=== PATIENT | female | born 1965 | race Caucasian/White ===

== ENCOUNTER 2025-03-02 09:32 | Emergency (ER) | payer OTHER, SELFPAY ==
--- NOTE | 2025-03-02 09:35 | ED_ITS ---
HPI - Nausea/Vomiting/Diarrhea General Chief complaint: Nausea/Vomiting/Diarrhea Stated complaint: Nausea Time Seen by Provider: 03/02/25 09:35 Source: patient Mode of arrival: ambulatory Limitations: no limitations History of Present Illness HPI Narrative: Patient is a 59-year-old female who presents with nausea for 3 days. Patient took her normal Mounjaro injection on Friday and has had nausea since. Patiayse t states that normally last 2 days. He denies any fever, vomiting, diarrhea. Does report mild cramping at times. Has taken Tums and Pepto-Bismol. Patient has PCP appointment on Friday with blood work. Related Data Home Medications ?Medication ?Instructions ?Recorded ?Confirmed ?Last Taken ?Type sertraline 25 mg tablet mg 03/02/25 Unknown History tirzepatide 2.5 mg/0.5 mL 2.5 mg subcut WEEKLY 03/02/25 03/02/25 Unknown History subcutaneous pen injector (Mounjaro) Allergies Allergy/AdvReac Type Severity Reaction Status Date / Time No Known Allergies Allergy Verified 03/02/25 09:41 Review of Systems Review of Systems: All systems reviewed & are unremarkable except as noted in HPI and below Constitutional: Constitutional: Denies body ache(s), Denies chills, Denies fatigue, Denies fever(s), Denies headache(s), Denies malaise and Denies weakness Eyes: Eyes: Denies blurry vision, Denies irritation and Denies loss of vision ENT: Denies otalgia, Denies headache(s), Denies nasal discharge, Denies sinus pain and Denies sore throat Cardiovascular: Cardiovascular: Denies chest pain, Denies irregular heart rhythm and Denies dyspnea Respiratory: Respiratory: Denies dyspnea Gastrointestinal: Gastrointestinal: Denies abdominal pain, Denies melena, Denies hematochezia, Denies diarrhea, Reports nausea and Denies vomiting Musculoskeletal: Musculoskeletal: Denies back pain, Denies myalgias and Denies arthralgias Integumentary/Breasts: Skin/Breast: Denies pruritus and Denies rash Neurologic: Denies headache(s), Denies loss of vision and Denies weakness Psychiatric: Psychiatric: Reports no additional psychiatric complaints Endocrine: Endocrine: Denies fatigue PMFSH Comments At time of signature, agree with nursing past medical, surgical, social and family history. There is no relevant family history pertinent to the presenting complaint. Exam Const: General: cooperative, healthy appearing, comfortable, no acute distress and well nourished Nutritional Appearance: well nourished Orientation/consciousness: patient oriented x3 Limitations: no limitations HENMT: Head: normal to inspection, normocephalic and atraumatic Ears: hearing grossly normal bilaterally and external ears normal Face/Nose/Sinus: Normal external nose present, normal facial exam and face symmetric Face and sinus: normal facial exam and face symmetric Mouth: Yes lip normal Eyes: General: appearance normal, both eyes and all related structures Alignment and Position: alignment normal and position normal Periorbital: periorbital findings normal Eyelids: eyelids normal Pupils: Equal, round and reactive pupils present EOM: EOMs intact bilaterally Neck: Neck: normal visual inspection, full ROM and supple Chest: Chest palpation & inspection: normal inspection of the chest Resp: Effort & Inspection: normal respiratory effort and able to speak in complete sentences Auscultation: clear to auscultation bilaterally Cardio: Rate: regular rate Rhythm: regular rhythm Heart sounds: S1 normal heart sound present and S2 normal heart sound present GI: Inspection: normal to inspection GI Palp: No abdominal tenderness Auscultation: normal bowel sounds Skin: General skin exam: normal color and no rashes or lesions noted Neuro: General: patient oriented x3 and moves all extremities Cranial nerves: Yes Equal, round and reactive pupils present Speech: normal speech Gait exam (Neuro): Normal gait present Extrem: General: normal to inspection, full ROM and no edema Psych: Appearance: grossly normal and well kempt Mental Status: mental status grossly normal Speech and movement: Normal speech and movement present Affect: normal affect Attitude: cooperative Thought process: Normal thought process present Course Course Emergency Course: Patient is aware of diagnosis, understands and agrees to treatment plan. Anticipatory guidance given. Patient agrees to follow-up as directed and is aware of reasons to seek care at the emergency department. Portions of this record may have been created with voice recognition software Level of Care: Express Care Visit Vital Signs Vital signs: Reviewed MDM - Nausea/Vomiting/Diarrhea MDM Narrative Medical decision making narrative: Pt well hydrated appearing, in no respiratory distress, hemodynamically stable. Recommend supportive care. The patient is stable at time of discharge the clinical impression was discussed and the patient was given the opportunity to ask questions, which were addressed as completely as possible given the information available at present. Anticipatory guidance and return to care precautions were discussed and the importance of primary care follow-up was stressed and encouraged. The patient voiced understanding of the plan, indications to return, and the need for follow-up. Exam findings show no acute concerns or changes Patient is appropriate for outpatient treatment and follow-up. Differential Diagnosis Differential diagnosis: Likely gastroenteritis, drug-induced nausea and vomiting and dehydration Medical Records Attestation: I reviewed the patient's medical records. Discharge Plan Discharge Clinical Impression: Nausea Patient Disposition: Home Condition: Stable Instructions: Acute Nausea and Vomiting (ED) Additional Instructions: Stay hydrated. Take small sips of fluid containing electrolytes frequently(Body [place], Gatorade, Powerade, liquid IV). Eat small meals that her very bland including bananas, applesauce, rice, toast, boiled or grilled chicken, soup. Do not eat anything fried, spicy or overly acidic. You should go to the hospital if you experience return of persistent nausea and vomiting that does not resolve and does not allow you to tolerate any food or fluids, persistent fevers for greater than 2-3 more days, increasing abdominal pain that persists despite medications, persistent diarrhea, dizziness, syncope (fainting), or for any other concerns. Patient Language: Jordanian Prescriptions: New ondansetron 4 mg tablet,disintegrating 4 mg PO Q6-8H PRN (Reason: nausea and vomiting) Qty: 15 0RF No Action sertraline 25 mg tablet Mounjaro 2.5 mg/0.5 mL pen injector 2.5 mg subcut WEEKLY Rx Instructions: for 4 weeks Follow-up/Referrals: Jose Pierre MD [Physician] - 3 Days Time of Disposition: 09:47
[2025-03-02 09:37] VITALS: BP 101/67; PULSE 86; RESP 16; TEMP 36.2; O2SAT 99
[2025-03-02] MEDS: ONDANSETRON HCL ODT 4 MG TABLET SUBLINGUAL (09:48)
--- OUTSIDE RECORDS SUMMARY | 2025-03-02 09:58 | XMS_ITS | Clinical Summary ---
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 Gender Identity Not on file Sexual Orientation Not on file Plan of Treatment Health Maintenance Due Date Last Done Comments Hepatitis C Virus (HCV) Screening 1967 TdaP Immunization 1967 Hepatitis B Immunization (1 of 3 - 19+ 3-dose series) 1986 Pap Smear 1988 Cervical Cancer Screening (CCS) 1997 HPV/Cotest 1997 Cologuard 2012 Colonoscopy 2012 Colorectal Cancer Screening 2012 Immunochemical Fecal Occult Blood 2012 Pneumococcal Immunization (5 0+ years) (1 of 1 - PCV) 2017 Zoster Immunization (1 of 2) 2017 SARS-COV-2 Immunization ( - season) 2024 Influenza Immunization (#1) 03/28/202503/28, 03/28/2018, 04/15/2017 Respiratory Syncytial Virus (RSV) Immunization (Adult) (1 - 1-dose 75+ series) 2042 DTaP/Tdap/Td Immunization Discontinued 10/15/2005 Human Papillomavirus (HPV) Immunization Aged Out No longer eligible based on patient's age to complete this topic Meningococcal Immunization (ACWY) Aged Out No longer eligible based on patient's age to complete this topic Rotavirus Immunization Aged Out No lo nger eligible based on patient's age to complete this topic
--- OUTSIDE RECORDS SUMMARY | 2025-03-02 09:58 | XMS_ITS | Clinical Summary ---
Author Organization [facility] [employer] Address [address] [place] [address] Care Team Providers Care Leasing Property Manager Name Role Phone Jasmin Smith MD Primary Care Provider Source Comments [facility] [employer],non-owned Affiliates and Associated Physician Practices is amultiple site organization consisting of ambulatory clinics and hospital sitesin [place], [place], [place] and [place]. This disclosure is being madepursuant to the Care Everywhere program and may not contain all information available regarding this patient. Last updated 18.[facility] [employer] Allergies No known active allergies Medications * Be aware that medications may not be up to date on this document. Alwaysverify current medications with the patient. traZODone (DESYREL) 50 MG tablet Take 50 mg by mouth at bedtime 1 Active sertraline (ZOLOFT) 50 MG tablet Take 50 mg by mouth once daily 1 Active acetaminophen (TYLENOL) 500 MG tablet Take 500 mg by mouth every 4 hours as needed for Fever or Pain Maximum allowable Acetaminophen amount = 4 Grams (4000 mg) / 24 hours. Active polyethylene glycol 3350 (MIRALAX) 17 g packet Take 17 (seventeen) g by mouth once daily as needed for Constipation 1 Active HYDROcodone-ac etaminophen (NORCO) 5-325 MG tablet Take 1 (one) tablet by mouth 2 times daily as needed for Pain 40 tablet 1 Active cyclobenzaprin e (FLEXERIL) 5 MG tablet Take 1 (one) tablet by mouth 3 times daily as needed (Muscle spasms) 30 tablet 1 Active Active Problems Problem Noted Date Diagnosed Date Impaired mobility and ADLs 04/27/2021 Tibial plateau fracture, left, closed, initial e ncounter 04/18/2021 Social History Tobacco Use Types Packs/Day Years Used Date Smoking Tobacco: Never Smokeless Tobacco: Never Alcohol Use Standard Drinks/Week Comments Yes 0 (1 standard drink = 0.6 oz pur e alcohol) socially Comments No Sex and Gender Information Value Date Recorded Sex Assigned at Not on file Legal Sex Female 10:05 AM APPLICATION SPECIALIST Gender Identity Not on file Sexual Orientation Not on file Last Filed Vital Signs Vital Sign Reading Time Taken Comments Blood Pressure 124/64 04/28/2021 5:06 PM CDT Pulse 98 04/28/2021 5:06 PM CDT Temperature 36.9 C (98.4 F) 04/28/2021 5:06 PM CDT Respiratory Rate 16 04/28/2021 5:06 PM CDT Oxygen Saturation 95% 04/28/2021 5:06 PM CDT Inhaled Oxygen Concentration - - Weight 73 kg (161 lb) 07/04/2021 10:28 AM APPLICATION SPECIALIST Height 157.5 cm (5' 2) 07/04/2021 10:28 AM APPLICATION SPECIALIST Body Mass Index 29.45 07/04/2021 10:28 AM APPLICATION SPECIALIST Plan of Treatment Health Maintenance Due Date Last Done Comments COLOGUARD (AGES 45-75) - COL ON CA SCREENING 1967 COLON MONITORING 1967 COLONOSCOPY - COLON CA SCREENING 1967 CT COLONOGRAPHY - COLON CA SCREENING 1967 Colorectal Cancer Screening 1967 FIT - COLON CA SCREENING 1967 FLEX SIG - COLON CA SCREENING 1967 LIPID TESTING 1967 MAMMOGRAM 1967 HIV SCREENING 1982 HEPATITIS C SCREENING 06/23/1985 DTAP/TDAP/TD VACCINES (1 - Tdap) 1986 HEPATITIS B VACCINE (1 of 3 - 19+ 3-dose series) 1986 PNEUMOCOCCAL VACCINE 50+ (1 of 1 - PCV) 2017 ZOSTER VACCINE (1 of 2) 2017 COVID-19 VACCINE (3 - 2023-2 5 season) 2024 09/08/2020, 08/11/2020 SCREENING FOR DIABETES 04/27/2024 04/27/2021 DEPRESSION SCREENING 07/28/2024 INFLUENZA VACCINE (#1) 2025 HIB VACCINE Aged Out No longer eligi ble based on patient's age to complete this topic HPV VACCINE Aged Out No longer eligi ble based on patient's age to complete this topic MENINGOCOCCAL (Group B) VACCINE SHARED DECISION-MAKING Aged Out No longer eligible based on patient's age to complete this topic MENINGOCOCCAL GROUPS A/C/Y/W VACCINE Aged Out No longer eligible b ased on patient's age to complete this topic Medical Devices Implanted Type Area Thermoplastic Technician Device Identifier Shelf Expiration Date Model / Serial / Lot Prodense Implanted:Qty: 1 on 04/26/2021 by Krzysztof Lambert MD at [facility] Left: [employer] 12/07/2025 [id number] / / [id number] Screw 3.5mm 70mm T15 Lck Lopro Slf-Tap Implanted:Qty: 1 on 04/26/2021 by Krzysztof Lambert MD at [facility] N/A: [employer] [id number] / / Screw 3.5mm 28mm Ft Nonlock Hex Drv Elb Implanted:Qty: 1 on 04/26/2021 by Krzysztof Lambert MD at [facility] N/A: [employer] [id number] / / Screw 3.5mm 34mm Ft Nonlock Hex Drv Elb Implanted:Qty: 1 on 04/26/2021 by Krzysztof Lambert MD at [facility] N/A: [employer] [id number] / / Screw 3.5mm 56mm T15 Lck Slf-Tap Tip Tpr Implanted:Qty: 1 on 04/26/2021 by Krzysztof Lambert MD at [facility] N/A: [employer] [id number] / / Screw 3.5mm 58mm T15 Slf-Tap Lck Tpr Implanted:Qty: 1 on 04/26/2021 by Krzysztof Lambert MD at [facility] N/A: [employer] [id number] / / Screw 3.5mm 60mm T15 Lck Slf-Tap Tip Tpr Implanted:Qty: 4 on 04/26/2021 by Krzysztof Lambert MD at [facility] N/A: [employer] [id number] / / Screw 3.5mm 65mm T15 Lck Slf-Tap Tip Tpr Implanted:Qty: 1 on 04/26/2021 by Krzysztof Lambert MD at [facility] N/A: [employer] [id number] / / Plate Lock Prox Tib Lt 5h Std Implanted:Qty: 1 on 04/26/2021 by Krzysztof Lambert MD at [facility] N/A: [employer] [id number] / / Explanted Type Area Thermoplastic Technician Device Identifier Shelf Expiration Date Model / Serial / Lot Screw 3.5mm 65mm Sq Drv Nonlock Lopro Explanted:Qty: 1 on 04/26/2021 by Krzysztof Lambert MD at [facility] N/A: [employer] 5 / / Wire K 1.6mm 6in Hlf Bynt Pnt Ss Fx Explanted:Qty: 2 on 04/26/2021 by Nathan Garcia DO at [facility] Left: [employer] [id number] / / Procedures Procedure Name Priority Date/Time Associated Diagnosis Comments BASIC METABOLIC PANEL (CALCIUM TOTAL) Routine 04/27/2021 2:36 PM CDT from Last 3 Months or Most Recently Relevant to Health Maintenance Results * (ABNORMAL) BASIC METABOLIC PANEL (CALCIUM TOTAL) (04/27/2021 2:36 PM CDT) BUN 10 7 - 26 mg/dL 04/27/2021 3:08 PM [facility] Creatinine 0.69 0.56 - 0.96 mg/dL 04/27/2021 3:08 PM [facility] Sodium 139 136 - 145 mmol/L 04/27/2021 3:08 PM [facility] Potassium 3.1(L) 3.5 - 4.5 mmol/L 04/27/2021 3:08 PM [facility] Chloride 100 98 - 107 mmol/L 04/27/2021 3:08 PM [facility] CO2 27 22 - 29 mmol/L 04/27/2021 3:08 PM [facility] Glucose 148(H) 70 - 115 mg/dL 04/27/2021 3:08 PM [facility] Calcium 8.9 8.4 - 10.2 mg/dL 04/27/2021 3:08 PM [facility] Anion Gap 15 8 - 18 04/27/2021 3:08 PM [facility] BUN/Creatinine Ratio 14 7 - 23 04/27/2021 3:08 PM [facility] Osmolality Calculated 290 270 - 300 mOsm/kg 04/27/2021 3:08 PM [facility] eGFR by CKD-EPI >90 >=90 mL/min/1.7 3 m2 04/27/2021 3:08 PM [facility] Blood BLOOD SPECIMEN / Unknown Lab Venipuncture / Unknown 04/27/2021 2:36 PM CDT 04/27/2021 2:40 PM T Mayda Hurtado [facility] [employer]-[employer] [facility] LAB - CHEMISTRY ORDERA BLES Final Result [facility] [address] [place] [address], [facility] [phone] from Last 3 Months or Most Recently Relevant to Health Maintenance Insurance [facility] [id number] Advance Directives * Full Code (Latest Code Status on File) Date Activated Date Inactivated Comments 04/26/2021 11:26 AM 04/28/2021 7:30 PM Care Teams Leasing Property Manager Relationship Specialty Start Date End Date Jasmin Smith MD [address] [place] [address] PCP - General Family Medicine 04/24/21
--- OUTSIDE RECORDS SUMMARY | 2025-03-02 09:58 | XMS_ITS | Clinical Summary ---
Author Organization [facility] Address [address] [place] [address] Care Team Providers Care Photographic Processor Name Role Phone Unavailable Primary Care Provider Unavailabl e Encounters Date Type Department Care Team Description 02/09/2025 External Device Data [facility] ABSTRACTION Provider, Abstract 02/09/2025 External Device Data [facility] Provider, Abstract 01/12/2025 External Device Data [facility] Provider, Abstract 12/21/2024 External Device Data [facility]CTION Provider, Abstract 12/16/2024 External Device Data [facility]CTION Provider, Abstract 12/15/2024 External Device Data [facility]CTION Provider, Abstract 11/30/2024 External Device Data [facility]STRACTION Provider, Abstract from Last 3 Months Social History Tobacco Use Types Packs/Day Years Used Date Smoking Tobacco: Never Assessed Comments Unknown Sex and Gender Information Value Date Recorded Sex Assigned at Not on file Legal Sex Female 3:48 PM CDT Gender Identity Not on file Sexual Orientation Not on file Plan of Treatment Health Maintenance Due Date Last Done Comments DTAP/TDAP/TD VACCINES (1 - Tdap) 1986 HEPATITIS B VACCINES (1 of 3 - 19+ 3-dose series) 1986 HPV/Cotest (21-29) 1988 CERVICAL CANCER SCREENING 1997 HPV/Cotest (30-65) 1997 PAP SMEAR 1997 COLORECTAL SCREENING 2012 Colorectal Cancer Screening 2012 FIT-DNA Q 3 years 2012 FIT/FOBT Q 1 year 2012 Flex Sig/CT Colonography Q 5 years 2012 ZOSTER VACCINE (1 of 2) 2017 COVID-19 Vaccine ( season) 03/28/202406/2021, 08/11/2020 INFLUENZA VACCINE (#1) 2025 BREAST CANCER SCREENING 2025 2024, 12/18 Procedures Procedure Name Priority Date/Time Associated Diagnosis Comments MAMMO DIAGNOSTIC UNI RIGHT W OR WO CAD Routine 2024 1:20 PM RECORD LIBRARIAN Mass of right breast, unspecified quadrant from Last 3 Months or Most Recently Relevant to Health Maintenance Results * (ABNORMAL) MAMMO DIAGNOSTIC UNI RIGHT W OR WO CAD (2024 1:20 PM RECORD LIBRARIAN) Anatomical Region Laterality Modality Breast Right Mammography 2024 1:20 PM RECORD LIBRARIAN Impressions 2024 2:39 PM RECORD LIBRARIAN IMPRESSION: Benign appearing nodules right breast. A repeat examination of both breasts in six months is recommended for confirmation of stability on the right as well as corresponding to routine yearly surveillance on the left. BI-RADS Category 3-Probably benign. Narrative 2024 2:39 PM RECORD LIBRARIAN INDICATION: Follow up nodule. Compared to prior studies most recent dated 10/19/2023. CC and MLO views of both breasts were obtained. 3D tomosynthesis was also utilized. An approximately 5 mm nodule is again noted near the 7:00 position of the right breast. Ultrasound exam again demonstrates a 5 mm solid nodule which is well-circumscribed and likely benign in nature. A stable 6 mm nodule is again noted near the central portion of the right breast. A 7 mm well-circumscribed hypoechoic nodule is noted in its approximate location on ultrasound exam. No suspicious ultrasound abnormality is identified. Breast Density: Heterogeneously dense, which may obscure small masses. us Jasmin Mcgowan MD MAMMO ORDERABLES Final Re sult from Last 3 Months or Most Recently Relevant to Health Maintenance Insurance [facility] DIRECT
--- OUTSIDE RECORDS SUMMARY | 2025-03-02 09:58 | XMS_ITS | Encounter Summary ---
Author Organization [facility] Address [address] [place] [address] Care Team Providers Care Uniform Designer Name Role Phone Jasmin Smith MD Primary Care Provider Encounter Details Date Type Department Care Team (Late st Contact Info) Description 07/01/2019 Lab Requisition [facility] Care DermPath Lab [address] [place] [id number] Nan Garcia DO [address] [place] [address] Social History Tobacco Use Types Packs/Day Years Used Date Smoking Tobacco: Never Assessed Comments Unknown Sex and Gender Information Value Date Recorded Sex Assigned at Not on file Legal Sex Female 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 SYSTEMS DESIGNER Gender Identity Not on file Sexual Orientation Not on file documented as of this encounter Plan of Treatment Not on file documented as of this encounter Procedures Procedure Name Priority Date/Time Associated Diagnosis Comments DERMATOPATHOLOGY Routine 06/30/2019 12:0 0 AM COMPUTER SYSTEMS DESIGNER documented in this encounter Results * DERMATOPATHOLOGY (06/30/2019 12:00 AM COMPUTER SYSTEMS DESIGNER) Case Report Dermatopathology Report Case: [id number] Authorizing Provider: Nan Garcia DO Collected: 06/30/2019 12:00 AM Ordering Location: [facility] DermPath Lab Received: 07/01/2019 07:18 AM Pathologist: Ericka Larsen MD Specimen: Skin, left shoulder 2:47 PM [facility] DERMATOPATHOLOGY [facility]ORAT[facility] Final Diagnosis Specimen A. SKIN, left shoulder: ACANTHOSIS AND HYPERKERATOSIS (L98.8) (see microscopic description and comment) 2:47 PM [facility] DERMATOPATHOLOGY LABORATORY at [address]47 COMPUTER SYSTEMS DESIGNER Clinical History Favor nevus + DF R/O atypia, changing. 2:47 PM [facility] DERMATOPATHOLOGY [facility] Gross Description Specimen A: Received is one formalin filled container labeled with the patient's name and designated left shoulder. The specimen consists of a shave measuring [id number]. Jar 0. 2:47 PM [facility] DERMATOPATHOLOGY [facility] Microscopic Description Specimen A. SKIN, left shoulder: Sections show a superficial biopsy with acanthosis and hyperkeratosis. There is minimal dermis present for evaluation with scattered fibroblasts. COMMENT: These histological findings can be seen in a superficial biopsy of a dermatofibroma. 2:47 PM [facility] DERMATOPATHOLOGY [facility]OR[facility] Disclaimer An external and internal positive and negative controls are appropriate for the histochemical, immunohistochemical and immunofluorescence stain(s) in this case (if any), except where stated explicitly. The performance characteristics of the stain(s) cited in this report were developed and its performance characteristic determined by the Dermatopathology Laboratory at [facility], directed by Dr. Sisi Larsen. These tests need not be, and therefore are not, approved by the [place] Food and Drug Administration. The tests are used for clinical purposes. Billing Codes Specimen Charges Stain Charges 98770 1 9 2:47 PM [facility] DERMATOPATHOLOGY [facility] Embedded Images 2:47 PM [facility] DERMATOPATH[facility]Y [facility] Pathology/Cytolog y TISSUE SPECIMEN FROM SKIN / Unknown 06/30/2019 07/01/2019 7:18 AM COMPUTER SYSTEMS DESIGNER us Nan Garcia DO LAB - PATHOLOGY/CYTOLOGY ORDERABLES Final Result DERMATOPATHOLOGY LABORATORY [facility] - Department of Dermatology [address] [place] [address], [facility] [phone] documented in this encounter Visit Diagnoses Not on filedocumented in this encounter Care Teams Uniform Designer Relationship Specialty Start Date End Date Jasmin Smith MD [facility] [place] [address] [place] [address] PCP - General Family Medicine 04/24/21 documented as of this encounter
== END 2025-03-02 09:51 | disposition home or self-care (01) ==
PROVIDERS: Emergency Provider Nurse Practitioner Family
DX: R11.0 Nausea (principal)
CPT/HCPCS: 99213; A9270; G0463